=== PATIENT | female | born 1950 | race Caucasian/White ===

== ENCOUNTER 2020-06-19 16:37 | Outpatient (CLI) | payer MEDICARE, OTHER | END 2020-06-19 16:38 | disposition home or self-care (01) | LOC: COV 16:37 | PROVIDERS: ATTEND Ophthalmology | DX: Z01.812 Encounter for preprocedural laboratory examination (principal); Z20.828 Contact with and (suspected) exposure to other viral communicable diseases; H35.371 Puckering of macula, right eye ==